=== PATIENT | male | born 1985 | race Caucasian/White ===

== ENCOUNTER → 2016-10-27 | Outpatient (CLI) | payer BC ==
[2016-10-27 13:16] LABS: ALT/SGPT 61 U/L (12-78); AST/SGOT 25 U/L (15-37); BLOOD UREA NITROGEN 16 mg/dl (7-18); CALCIUM 8.5 mg/dl (8.5-10.1); CARBON DIOXIDE 27 mmol/L (21-32); CHLORIDE 108 mmol/L (98-107); CREATININE 0.82 mg/dl (0.60-1.40); GLUCOSE,FASTING 85 mg/dl (70-99); POTASSIUM 4.3 mmol/L (3.5-5.1); SODIUM 140 mmol/L (136-145)
[2016-10-27 13:18] LABS: ALB/GLOB RATIO 1.1 (0.9-2); ALKALINE PHOSPHATASE 70 U/L (45-117); CHOLESTEROL 169 mg/dl (0-200); CHOLESTEROL/HDL RATIO 3.4; HDL CHOLESTEROL 49 mg/dl; LDL CHOLESTEROL CALCULATED 97 mg/dl; TRIGLYCERIDES 116 mg/dl (0-150); VERY LOW DENSITY LIPOPROT CALC 23 mg/dl
[2016-10-27 13:33] LABS: LYME DISEASE AB IGM NEG (NEG)
[2016-10-27 13:36] LABS: LYME DISEASE AB IGG NEG (NEG)
--- NOTE | 2016-11-03 06:05 | CODING QUERY MEDICAL NECESSITY ---
SUPPORTING DIAGNOSIS NEEDED Vito DAMON, A supporting diagnosis is required for the test/procedure performed on this patient in order for us to be reimbursed by the patient's insurance. Please provide a supporting diagnosis for the following test/procedure listed below next to the test name along with your signature. *If there is no additional diagnosis for this patient that would support the following test/procedure please document that below next to the test/procedure. Test(s)/Procedure(s) that require a supporting diagnosis: * ([id number]) VITAMIN D ASSAY DIAGNOSIS: DATE OF SERVICE: 10/27/16 Provider Signature: Date: Thank you Adolfo Rahman [facility] Information Management Once completed, please kindly fax back to [phone] For questions please call [phone]
== END | disposition home or self-care (01) ==
LOC: C.LABPBG 08:40
PROVIDERS: ATTEND Physician Assistant
DX: Z00.00 Encounter for general adult medical examination without abnormal findings (principal); T14.8 Other injury of unspecified body region; W57.XXXA Bitten or stung by nonvenomous insect and other nonvenomous arthropods, initial encounter; M25.50 Pain in unspecified joint; Z13.21 Encounter for screening for nutritional disorder